=== PATIENT | female | born 1945 | race Caucasian/White ===

== ENCOUNTER 2018-11-10 18:55 | Emergency (ER) | payer MEDICARE, OTHER ==
[~2018-11-10] VITALS: Ht 165.1 cm; Wt 81.7 kg
[2018-11-10 19:00] VITALS: BP 149/86
[2018-11-10] MEDS ORDERED: WOMEN (19:18)
[2018-11-10] MEDS ORDERED: lisinopril (19:18)
[2018-11-10] MEDS ORDERED: depakote (19:18)
[2018-11-10] MEDS ORDERED: MULTIVITAMINS (19:18)
[2018-11-10] MEDS ORDERED: vitamin D (19:18)
[2018-11-10] MEDS ORDERED: DEXAMETHASONE SOD PHOS 10 MG/ML VIAL ONE (19:25)
[2018-11-10] MEDS ORDERED: DEXAMETHASONE SOD PHOS 10 MG/ML VIAL IM ONE (19:30)
[2018-11-10] MEDS ORDERED: TRIA15CR50 TP (19:31)
[2018-11-10] MEDS ORDERED: METH4TAB2 PO (19:31)
--- NOTE | 2018-11-10 19:32 | PHYS DOC ---
Adult General Chief Complaint Chief Complaint: SKIN RASH/ABSCESS [facility] HPI Patient is a 72-year-old female who presents with complaint of rash to her forearms as well as her neck and her face. Patient indicates that she had been out working in the garden yesterday and not wearing gloves. She states that in itially the rash started on the volar aspects of her forearm and she has since developed a rash to her face and neck that she indicates it itches a lot. She is not aware of having been bitten by any insects. She denies any injuries.[] Review of Systems Review of Systems Constitutional: Denies fever or chills [] Respiratory: Denies cough or shortness of breath [] Cardiovascular: No additional information not addressed in HPI [] Integument: Positive rash and itching[] Current Medications Current Medications Current Medications Medications (Trade) Dose Ordered Sig/Marco Start Time Stop Time Status Last Admin Dose Admin Dexamethasone Sodium Phosphate (Decadron) 10 mg STK-MED ONCE 11/10/18 19:25 11/10/18 19:26 DC Allergies Allergies Allergies Coded Allergies Type Severity Reaction Last Updated Verified No Known Drug Allergies 11/10/18 No Physical Exam Physical Exam Constitutional: Well developed, well nourished, no acute distress, non-toxic appearance. [] Cardiovascular:Heart rate regular rhythm, no murmur [] Lungs & Thorax: Bilateral breath sounds clear to auscultation [] Skin: Forearms demonstrate papular rash with small vesicles. Face demonstrates confluent erythematous, papular rash with linear orientation. [] EKG EKG [] Radiology/Procedures Radiology/Procedures [] Course & Med Decision Making Course & Med Decision Making Pertinent Labs and Imaging studies reviewed. (See chart for details) [] Dragon Disclaimer Dragon Disclaimer This electronic medical record was generated, in whole or in part, using a voice recognition dictation system. Departure Departure: Impression: Primary Impression: Contact dermatitis Disposition: 01 HOME, SELF-CARE Condition: STABLE Referrals: KELVIN HAMPTON MD (PCP) Patient Instructions: Contact Dermatitis Scripts Triamcinolone Acetonide (TRIAMCINOLONE ACETONIDE) 15 Gm Cream..g. 1 MARISOL TP BID PRN for RASH, #15 GM Prov: CHELY ONEAL Jr. DO 11/10/18 Methylprednisolone (MEDROL) 4 Mg Tab.ds.pk 1 PKG PO UD for rash, #1 PKG Prov: CHELY ONEAL Jr. DO 11/10/18 Problem Qualifiers Primary Impression: Contact dermatitis Contact dermatitis type: unspecified Contact dermatitis trigger: unspecified trigger Qualified Codes: L25.9 - Unspecified contact dermatitis, unspecified cause CHELY ONEAL Jr. DO November 10, 2018 19:32
== END 2018-11-10 19:42 | disposition home or self-care (01) ==
LOC: ER 18:55
DX: L25.9 Unspecified contact dermatitis, unspecified cause (principal)
CPT/HCPCS: 96372; 99283; J1100

== ENCOUNTER → 2021-03-31 | Outpatient (CLI) | payer MEDICARE, OTHER ==
[~2021-03-31] MED LIST: METH4TAB2 PO; MULTIVITAMINS; TRIA15CR50 TP; WOMEN; depakote; lisinopril; vitamin D
--- NOTE | 2021-03-31 14:24 | RAD ---
EXAM: DUAL ENERGY X-RAY ABSORPTIOMETRY (DEXA). HISTORY: Postmenopausal screening. FINDINGS: The lowest measured T-score is -0.6 in the right femoral neck, based on a bone mineral dens ity of 0.950 g/cm^2. Refer to the worksheets for full detail. No comparison examinations are available. IMPRESSION: 1. Normal. Bone mineral density yields a T-score of -1.0 or greater. Fracture risk is low. 2. FRAX report: Not calculated. METHODOLOGY: Dual energy x-ray absorptiometry was performed to measure bone mineral density. The foll owing analysis is based on the 2019 Official Positions of the International Society for Clinical Dens itometry: Measurements of the hips and the average of L1-L4 are preferred. When the spine and/or hip cannot be feasibly measured or interpreted, or in the setting of hyperparathyroidism, distal radial bone minera l density may be measured. The lumbar spine T-score is based on the average bone mineral density of L1-L4. In the setting of art ifact or anatomic abnormality, some lumbar levels may be excluded, and the remaining levels used for calculation. A single lumbar level is not used for diagnosis, and if only a single level is available for assessment, another anatomic site will be used to assign a diagnosis. The hip T-score is based on the bone mineral density measurement of the femoral neck or total proxima l femur of either side, whichever is lowest. Bilateral mean values are not used for diagnosis. The forearm T-score is derived from 33% of the distal radius of the nondominant forearm. Electronically signed by: Ceci Batista MD (03/31/2021 2:21 PM) [id number]
== END ==
LOC: DXRAD 13:18
PROVIDERS: ATTEND Specialist
DX: Z78.0 Asymptomatic menopausal state (principal)
CPT/HCPCS: 77080

== ENCOUNTER → 2021-11-16 | Outpatient (CLI) | payer MEDICARE, OTHER ==
--- NOTE | 2021-11-17 09:00 | RAD ---
XR CERVICAL SPINE 2-3V History: Reason: NECK PAIN / Spl. Instructions: / History: Technique: 3 views cervical spine Comparison: None. Findings: Normal vertebral body height and alignment. No acute fracture. Moderate degenerative disc changes mos t prominent C4-C5 and C5-C6. Facet arthropathy. Impression: 1. Moderate cervical spondylosis. Electronically signed by: Rex Winkler DO (11/17/2021 8:57 AM) [id number]
== END ==
LOC: RAD 13:15
PROVIDERS: ATTEND Physician Assistant
DX: M47.812 Spondylosis without myelopathy or radiculopathy, cervical region (principal)
CPT/HCPCS: 72040